=== PATIENT | male | born 1960 | race Caucasian/White ===

== ENCOUNTER → 2019-02-22 | Outpatient (CLI) | payer BC, OTHER ==
[~2019-02-22] MED LIST: ASPIRIN EC325 M1 PO; CARDURA2 MG PO; EFFIENT5 MG PO; LIPITOR80 MG PO; LISINOPRIL20 MG PO; PRAVASTATIN SOD20 MG PO; PRILOSEC40 MG PO; TOPROL XL50 MG PO
== END ==
LOC: NUC 07:25
DX: R07.9 Chest pain, unspecified (principal); I25.10 Atherosclerotic heart disease of native coronary artery without angina pectoris; E78.5 Hyperlipidemia, unspecified; I10 Essential (primary) hypertension; Z82.49 Family history of ischemic heart disease and other diseases of the circulatory system; Z95.5 Presence of coronary angioplasty implant and graft; Z68.30 Body mass index [BMI] 30.0-30.9, adult